=== PATIENT | male | born 1970 | race Caucasian/White ===

== ENCOUNTER 2018-12-27 06:37 | Observation (INO) | payer BC ==
[~2018-12-27] VITALS: Ht 188 cm; Wt 141.3 kg
--- NOTE | ~2018-12-27 | P ---
[facility] [place] [address] PROCEDURE REPORT Name: WILBUR JORGENSEN Room #: 211-P [facility] MarthaRejiRonaldReji#: [id number] Admission: 12/27/18 ������������������ Attend Phys: Bonilla Marin MD Discharge: ������������������ Date of : 66 Report #: [id number] THIS REPORT FOR: //name// CC: FAM rush NINO YADIRA Marin PROCEDURE: AFib ablation. PREOPERATIVE DIAGNOSES: 1. Paroxysmal atrial fibrillation. 2. Supraventricular tachycardia. 3. Premature ventricular contractions. HISTORY: The patient is a 48-year-old male recently admitted with episodes of paroxysmal atrial fibrillation. He wore recent monitor and storage bin tender, which showed some brief episodes of SVT as well as PVCs. He is here for EP study, possible ablation of SVT with possible ablation of atrial fibrillation. PROCEDURES PERFORMED: 1. Comprehensive EP study, CPT code 11968. 2. Atrial fibrillation ablation, CPT code 28101. 3. Programmed stimulation pacing after IV drug infusion, CPT code 96885. 4. 3D mapping, CPT code 27639. 5. Intracardiac echo, CPT code 45731. ANESTHESIA: The patient underwent general anesthesia with no anesthesia related complications. DESCRIPTION OF PROCEDURE: The patient underwent informed consent. We discussed the details of the procedure including the risks, which include but not limited to bleeding, infection, vascular damage, cardiac perforation as well as stroke or NC. He understood these risks and is willing to proceed. The patient was brought to EP laboratory in a fasting and unsedated state, prepped and draped in a sterile fashion. I obtained access to the bilateral femoral veins placing an 8 and 6-Kosovan short sheath in the right femoral vein and 9 and 7-Kosovan short sheath in the left femoral vein. Under fluoroscopy, I placed 3 quadripolar catheters at the HRA, His and RV positions and a decapolar catheter into the coronary sinus with ease. Next, a basic EP study was performed. At baseline, the patient was in sinus rhythm with sinus cycle length of 910 milliseconds, ME interval 190 milliseconds, QRS duration 97 milliseconds, QT interval 410 milliseconds, AH interval 80 milliseconds, HV interval 40 milliseconds. Next, atrial burst pacing was performed and AV block was noted at 330 milliseconds. AV marika ERP is noted at 209 milliseconds at 500 millisecond [facility] [address] [place] [address] PROCEDURE REPORT Name: WILBUR JORGENSEN Room #: 211-P [facility] [id number] Admission: 12/27/18 ������������������ Attend Phys: Bonilla Marin MD Discharge: ������������������ Date of : 66 Report #: [id number] cycle length. Ventricular pacing was performed and VA block was noted at 350 milliseconds. Ventricular ERP was noted at 240 milliseconds at a [address] cycle length. VA conduction was both midline and decremental. Next, isoproterenol infusion was initiated at 2 mcg per minute. AV block was noted at 280 milliseconds. VA block was noted at 340 milliseconds and atrial ERP was noted at 230 milliseconds at [address] cycle length. With single ventricular extrastimuli, the patient would have some short bursts of SVT that had tachycardia cycle length that was somewhat variable at 340-370 milliseconds. There was some slight wobble. This would initiate within prior to the ventricular electrogram, it would terminate with a ventricular signal. The earliest atrial activation was at CS 7, 8 and these episodes would last anywhere from 5 to 10 beats. I did increase isoproterenol to 4 mcg per minute to see if we could re-induce these episodes. With atrial burst pacing, we would get some short runs of SVT again that lasted anywhere from 5 to 10 beats in duration with similar atrial activation as previously described. I attempted approximately 30 minutes to see if we could induce something sustainable. This appeared to be slightly irregular and likely an atrial tachycardia. Reviewing his monitor and storage bin tender that he wore, I think this is likely what we were seeing. As such, we decided to proceed with AFib ablation. AFIB ABLATION: Next, the patient was transitioned over to AFib ablation. I removed my HRA, His and RV catheters. I placed an ice catheter into the right atrium and created a detailed 3D geometry of the left atrium using [employer]. The patient was then systemically heparinized and a transseptal was performed using an SL1 sheath and a Townley needle. I did have to predilate his right groin as it was hard to initially place the SL1 sheath or dilate with the cryo sheath. I was able to perform a transseptal using the SL1 sheath and the Townley needle and this was straightforward. I exchanged over to the cryo sheath and placed the cryoballoon into the left atrium. We isolated the left superior pulmonary vein in 2 freezes. I isolated the left inferior pulmonary vein in 3 freezes. I turned my attention to the right superior pulmonary vein. This vein did not really have much signal to begin with. Therefore, I performed a single 4-minute freeze and this vein appeared isolated. I then turned my attention to the right inferior pulmonary vein. I performed a single 4-minute freeze as this vein isolated within about 40 seconds. As such, all veins are reinterrogated and there was isolation and exit and entrance block in all 4 veins. As such, the procedure was concluded. Using intracardiac ultrasound, there was no evidence of pericardial effusion. The patient received systemic protamine and once the ACT was within acceptable range, catheters and sheaths were pulled and hemostasis was obtained. I did perform a [id number] suture in the right groin given his obesity in the groin region. Of note, the patient has had evidence of PVCs on a monitor and storage bin tender, during this EP study, he had no evidence of his clinical PVCs that appear to be right ventricular outflow tract in nature. This was despite isoproterenol infusion up to 4 mcg per minute. [facility] [address] [place] [address] PROCEDURE REPORT Name: WILBUR JORGENSEN THALIA Room #: 211-P [facility]#: [id number] Admission: 12/27/18 ������������������ Attend Phys: Bonilla Marin MD Discharge: ������������������ Date of : 66 Report #: [id number] CONCLUSIONS: 1. Successful AFib ablation with isolation of the 4 pulmonary veins. 2. EP study with evidence of likely an atrial tachycardia that was nonsustained and could not be further characterized. 3. No evidence of PVCs despite isoproterenol infusion during the EP study. ��������������������������������������������� ���������������������������������������� By: ��������������������������������������������� 1153 99 Bonilla Marin MD /nt
[2018-12-27 07:02] VITALS: BP 163/91
[2018-12-27] MEDS ORDERED: ASPIR 8181 MG PO (07:08)
[2018-12-27] MEDS ORDERED: LIPITOR40 MG PO (07:08)
[2018-12-27] MEDS ORDERED: AMLODIPINE BESY10 MG PO (07:08)
[2018-12-27] MEDS ORDERED: NOVOLOG100 UNIT/1 SUBQ (07:09)
[2018-12-27] MEDS ORDERED: ALLER-EASE180 MG PO (07:09)
[2018-12-27] MEDS ORDERED: TRESIBA FL100 UNIT/1 SUBQ (07:10)
[2018-12-27] MEDS ORDERED: COZAAR 25 MG TA25 M1 PO (07:10)
[2018-12-27] MEDS ORDERED: METFORMIN HCL500 MG PO (07:11)
[2018-12-27] MEDS ORDERED: OMEPRAZOLE40 MG PO (07:11)
[2018-12-27] MEDS ORDERED: OZEMPIC0.25 MG/0. SUBLING (07:12)
[2018-12-27] MEDS ORDERED: SORINE 80 MG TA80 M1 PO (07:12)
[2018-12-27] MEDS ORDERED: TRIAMTERENE-HC1 EAC3 PO (07:13)
[2018-12-27 07:27] LABS: ABSOLUTE NEUTROPHILS 3.3 thou/uL (1.4-8.2); EOSINOPHILS 2.4 % (0.0-3.0); HEMATOCRIT 38.5 % (42.0-52.0); HEMOGLOBIN 13.2 gm/dL (14.0-18.0); MCH 30.2 pg (26.0-34.0); MCHC 34.2 g/dL (28.0-37.0); MCV 88.3 fL (80.0-100.0); MONOCYTES 10.4 % (1.0-8.0); PLATELET COUNT 207 thou/uL (150-400); POLYS 59.2 % (36.0-66.0); RBC 4.36 mil/uL (4.50-6.00); RDW 13.8 % (10.5-14.5); WBC 5.6 thou/uL (4.0-11.0)
[2018-12-27 07:40] LABS: POTASSIUM 3.5 mmol/L (3.5-5.1)
[2018-12-27 07:42] LABS: APTT 31.6 Seconds (24.5-32.8); PROTIME 10.1 Seconds (9.3-11.4)
[2018-12-27 07:46] LABS: ALBUMIN 4.1 g/dL (3.4-5.0); TOTAL BILIRUBIN 0.6 mg/dL (<0.1-1.0); TOTAL PROTEIN 7.7 g/dL (6.4-8.2)
--- NOTE | 2018-12-27 16:53 | NUR ---
TO THE UNIT FROM THE EP LAB POST ABLATION. PT ORIINETED TO ROOM AND BEDSPACE - ASSESSMENT CHARTED - NO CO'S OF PAIN OR NAUSEA. DAVID DIET AND FLUIDS. PT TO REMAIN ON BEDREST UNTIL 1800. GROIN SITES AND VSS STABLE. AT THE BEDSIDE. NO CO'S AT THE PRESENT TIME.
[2018-12-27 20:47] VITALS: BP 144/88
[2018-12-28 04:33] VITALS: BP 129/74
--- NOTE | 2018-12-28 05:09 | NUR ---
PT AMBULATING IN HALLS WITH OUT ANY COMPLAINTS, VSS, NO C/O PAIN, BILATERAL GROIN SITES AND RIGHT ARTERIAL DRESSINGS CDI, SR PER MONITOR, DC'D SPEARS AND PT VOIDING NOW IN COMMODE, PT HOPING TO GO HOME THIS AM. WILL CON'T TO MONITOR PER PPOC.
[2018-12-28 08:08] VITALS: BP 176/81
[2018-12-28] MEDS ORDERED: PRADAXA150 MG PO (08:08)
[2018-12-28 08:59] VITALS: BP 176/81
--- NOTE | 2018-12-28 11:04 | NUR ---
ASSESSMENT CHARTED - MEDS PER AUG- NO CO'S OF PAIN OR NAUSEA. DAVID DIET AND FLUIDS. UP AD PETE IN ROOM AND AMB IN HALLS. GROIN SITES WITH DRESSING REMOVED - NO BRUISING - HEAMATOMMA PRESENT. INSTRUCTION RE HOME MEDS/ CARE AND FOLLOW UP GIVEN TO PATIENT - IV AND MONITOR REMOVED PRIOR TO D/C. LEFT UNIT AMBULATORY ACCOMPANIED BY NURSE - HOME VIA PVT VEHICLE ACCOMPANIED BY . NO CO'S AT TIME OF D/C. STATED UNDERSTANDING OF D/C INSTRUCTION GIVEN.
== END 2018-12-28 11:03 | disposition home or self-care (01) ==
LOC: CATH 06:37 → 2N 16:42 → CATH 16:43 → 2N 16:43
PROVIDERS: ADMIT Internal Medicine Cardiovascular Disease
DX: I48.0 Paroxysmal atrial fibrillation (principal); I47.1 Supraventricular tachycardia; I49.3 Ventricular premature depolarization; I12.9 Hypertensive chronic kidney disease with stage 1 through stage 4 chronic kidney disease, or unspecified chronic kidney disease; E11.22 Type 2 diabetes mellitus with diabetic chronic kidney disease; N18.9 Chronic kidney disease, unspecified; Z88.1 Allergy status to other antibiotic agents
CPT/HCPCS: 10081; 62110; 62900; 65020; 65040; 70005